=== PATIENT | male | born 1995 | race Caucasian/White ===

== ENCOUNTER 2016-06-28 23:44 | Emergency (ER) | payer BC ==
[~2016-06-28] VITALS: Ht 172.7 cm; Wt 75.7 kg
[2016-06-28 23:48] VITALS: TEMP 37; Ht 172.7 cm; Wt 75.7 kg
[2016-06-29] MEDS ORDERED: SODIUM CHLORIDE 0.9% 1000ML 1,000 ML IV STA (00:39)
[2016-06-29] MEDS ORDERED: SODIUM CHLORIDE 0.9% 1000ML 500 ML IV STA (00:39)
[2016-06-29] MEDS ORDERED: ONDANSETRON INJ 2 MG/ML 2 ML VIAL IV STA (00:39)
--- NOTE | 2016-06-29 00:41 | EMERGENCY ROOM VISIT NOTE ---
History Report prepared by Anh: Simon Garrett Under the Supervision of: Dr. Yunier Steele M.D. First contact with patient: 00:32 Chief Complaint: ABDOMINAL PAIN Stated Complaint: ABDOMINAL PAIN IN MULTIPLE SPOTS-WORSENING Nursing Triage Summary: abdominal pain mid upper after lifting last week. pt has still been lifting and stopped with pain. today pt tried to lift again and the pain came back worse and is in different spots. denies n/v/d. History of Present Illness The patient is a 21 year old male who presents to the Emergency Room with complaints of persistent diffuse abdominal pain that began last week. He states that his pain is mainly focused in the left upper quadrant, and is a 4/10 in severity. The abdominal pain is worsened with standing and movement. He states that last week he tried to perform a "max-out" lift. He did not feel any pain during the lift. The day after the lift he started to experience his pain. The patient did try to lift weights again, but stopped immediately after his abdominal pain worsened. He did vomit this morning, but he attributes it to drinking alcohol and eating bad foods last night. He denies any diarrhea or recent fevers. The patient's mother has IBS, and his PCP believes he may have it too. Source of History: patient Onset: One week [employer] Position: abdomen (Diffuse) Symptom Intensity: 4/10 in severity Timing: other (Persistent) Modifying Factors (Worsening): movement Associated Symptoms: + vomiting, No fevers Review of Systems See HPI for pertinent positives & negatives. A total of 10 systems reviewed and were otherwise negative. Past Medical & Surgical Medical Problems: (1) No Known Active Medical Problems Family History Irritable bowel syndrome Social History Smoking Status: Never Smoker Alcohol Use: occasionally Housing Status: lives with roommate Occupation Status: [employer] student Current/Historical Medications Unable to Obtain Active Prescriptions or Reported Meds Allergies Coded Allergies: No Known Allergies (Unverified , 06/28/16) Physical Exam Vital Signs Date Time Temp Pulse Resp B/P Pulse Ox O2 Delivery O2 Flow Rate FiO2 06/29/16 01:14 89 20 148/72 97 Room Air 06/28/16 23:48 37.0 98 18 165/83 96 Room Air Physical Exam GENERAL: Patient is in no acute distress. HEENT: No acute trauma, normocephalic atraumatic, mucous membranes moist, no nasal congestion, no scleral icterus. NECK: No stridor, no adenopathy, no meningismus, trachea is midline. LUNGS: Clear to auscultation bilaterally, no wheeze, no rhonchi, breath sounds equal. HEART: Tachycardic with regular rhythm. No murmurs appreciated. ABDOMEN: Soft, Tender in the right lower quadrant, bowel sounds positive, no hernias, no peritonitis. EXTREMITIES: No cyanosis or edema, full range of motion of all the joints without pain or difficulty, no signs for acute trauma. NEUROLOGIC: Oriented x 3, no acute motor or sensory deficits, no focal weakness. SKIN: No rash, no jaundice, no diaphoresis. Medical Decision & Procedures ER Provider Diagnostic Interpretation: X ray results and stated below per my interpretation and radiologist interpretation. Other radiology results and stated below per my review and radiologist interpretation: US APPENDIX: Appendix not visualized. No free fluid in the right lower quadrant. Radiologist: aKren Roth M.D. Laboratory Results 06/29/16 01:00 Red Blood Count 4.78, Mean Corpuscular Volume 87.0, Mean Corpuscular Hemoglobin 30.1, Mean Corpuscular Hemoglobin Concent 34.6, Mean Platelet Volume 10.8, Neutrophils (%) (Auto) 64.8, Lymphocytes (%) (Auto) 19.1, Monocytes (%) (Auto) 15.0, Eosinophils (%) (Auto) 0.7, Basophils (%) (Auto) 0.2, Neutrophils # (Auto ) 7.39, Lymphocytes # (Auto) 2.18, Monocytes # (Auto) 1.71, Eosinophils # (Auto ) 0.08, Basophils # (Auto) 0.02 06/29/16 01:00 Test 06/29/16 01:00 White Blood Count 11.40 K/uL (4.8-10.8) Red Blood Count 4.78 M/uL (4.7-6.1) Hemoglobin 14.4 g/dL (14.0-18.0) Hematocrit 41.6 % (42-52) Mean Corpuscular Volume 87.0 fL (80-100) Mean Corpuscular Hemoglobin 30.1 pg (25-34) Mean Corpuscular Hemoglobin Concent 34.6 g/dl (32-36) Platelet Count 246 K/uL (130-400) Mean Platelet Volume 10.8 fL (7.4-10.4) Neutrophils (%) (Auto) 64.8 % Lymphocytes (%) (Auto) 19.1 % Monocytes (%) (Auto) 15.0 % Eosinophils (%) (Auto) 0.7 % Basophils (%) (Auto) 0.2 % Neutrophils # (Auto) 7.39 K/uL (1.4-6.5) Lymphocytes # (Auto) 2.18 K/uL (1.2-3.4) Monocytes # (Auto) 1.71 K/uL (0.11-0.59) Eosinophils # (Auto) 0.08 K/uL (0-0.5) Basophils # (Auto) 0.02 K/uL (0-0.2) RDW Standard Deviation 41.4 fL (36.4-46.3) RDW Coefficient of Variation 12.8 % (11.5-14.5) Immature Granulocyte % (Auto) 0.2 % Immature Granulocyte # (Auto) 0.02 K/uL (0.00-0.02) Urine Color YELLOW Urine Appearance CLOUDY (CLEAR) Urine pH 8.5 (4.5-7.5) Urine Specific [place] 1.027 (1.000-1.030) Urine Protein NEG (NEG) Urine Glucose (UA) NEG (NEG) Urine Ketones NEG (NEG) Urine Occult Blood NEG (NEG) Urine Nitrite NEG (NEG) Urine Bilirubin NEG (NEG) Urine Urobilinogen NEG (NEG) Urine Leukocyte Esterase NEG (NEG) Urine WBC (Auto) 0 /hpf (0-5) Urine RBC (Auto) 0-4 /hpf (0-4) Urine Hyaline Casts (Auto) 0 /lpf (0-5) Urine Epithelial Cells (Auto) 0-5 /lpf (0-5) Urine Bacteria (Auto) NEG (NEG) Anion Gap 9.0 mmol/L (3-11) Est Creatinine Clear Calc Drug Dose 102.7 ml/min Estimated GFR () 110.6 Estimated GFR (Non- 95.5 BUN/Creatinine Ratio 19.5 (10-20) Calcium Level 9.1 mg/dl (8.5-10.1) Total Bilirubin 0.4 mg/dl (0.2-1) Aspartate Amino Transf (AST/SGOT) 28 U/L (15-37) Alanine Aminotransferase (ALT/SGPT) 42 U/L (12-78) Alkaline Phosphatase 123 U/L (45-117) Total Protein 7.9 gm/dl (6.4-8.2) Albumin 4.5 gm/dl (3.4-5.0) Globulin 3.4 gm/dl (2.5-4.0) Albumin/Globulin Ratio 1.3 (0.9-2) Lipase 120 U/L (73-393) Laboratory results reviewed by me. Medications Administered Medications (Trade) Dose Ordered Sig/Carlene Route Start Time Stop Time Status Last Admin Dose Admin Sodium Chloride (Nss 1000ml) 500 ml @ 999 mls/hr Q31M STAT IV 06/29/16 00:39 06/29/16 01:09 DC 06/29/16 01:00 999 MLS/HR Ondansetron HCl 4 mg 4 mg NOW STAT IV 06/29/16 00:39 06/29/16 00:43 DC 06/29/16 01:00 4 MG Sodium Chloride (Nss 1000ml) 1,000 ml @ 200 mls/hr Q5H STAT IV 06/29/16 00:39 06/29/16 05:38 06/29/16 00:59 200 MLS/HR ED Course 0033: The patient was evaluated in room C3. A complete history and physical exam was performed. 0039: Ordered Sodium Chloride 1000 mL @ 200 mL/hr IV, Zofran 4 mg IV, Sodium Chloride 500 mL @ 999 mL/hr IV. Medical Decision Differential Diagnosis include: appendicitis, bowel rupture, hematoma, musculoskeletal pain, urinary tract infection, pancreatitis, hernia. There is a mild leukocytosis consistent with possible infection or just the stress of his presentation. No anemia. No significant electrolyte abnormality , kidney failure, hepatitis or pancreatitis. Urinalysis does not show evidence for infection or significant hematuria. Abdominal ultrasound could not visualize the appendix. Abdominal and pelvis CT is presently pending. The patient presents with intermittent abdominal pain. On exam, he was tender in the right lower quadrant. I was concerned for appendicitis. The patient received IV saline, IV Zofran. He did not require anything for pain. The patient's case is being assumed by Dr. Linton, he is the oncoming ER physician. Please see his notes for the results of the CT and the final disposition and plan. Impression Primary Impression: Right lower quadrant abdominal pain Scribe Attestation The scribe's documentation has been prepared under my direction and personally reviewed by me in its entirety. I confirm that the note above accurately reflects all work, treatment, procedures, and medical decision making performed by me. Departure Information Dispostion Still a Patient Prescriptions Unable to Obtain Active Prescriptions or Reported Meds Referrals No Doctor, Assigned (PCP) Patient Instructions My [facility]
[2016-06-29] MEDS ORDERED: OPTIRAY 320 IV PRN (01:00)
[2016-06-29 01:15] LABS: BASO % 0.2 %; BASO ABS # 0.02 K/uL (0-0.2); COMPLETE YES; EOS % 0.7 %; HEMATOCRIT 41.6 % (42-52); IG% 0.2 %; LYMPH % 19.1 %; LYMPH ABS # 2.18 K/uL (1.2-3.4); MEAN CORPUSCULAR HEMOGLOBIN 30.1 pg (25-34); MEAN CORPUSCULAR HGB CONC 34.6 g/dl (32-36); MEAN PLATELET VOLUME 10.8 fL (7.4-10.4); NEUT % 64.8 %; PLATELET COUNT 246 K/uL (130-400); RED BLOOD COUNT 4.78 M/uL (4.7-6.1)
[2016-06-29 01:29] LABS: URINE APPEARANCE CLOUDY (CLEAR); URINE BILIRUBIN NEG (NEG); URINE COLOR YELLOW; URINE EPITHELIAL CELL AUTO 0-5 /lpf (0-5); URINE NITRITE NEG (NEG); URINE PH 8.5 (4.5-7.5); URINE SPECIFIC GRAVITY 1.027 (1.000-1.030); UROBILINOGEN NEG (NEG); ZZUR CULT IF INDIC CLEAN CATCH NO
[2016-06-29 01:31] LABS: BUN/CREATININE RATIO 19.5 (10-20); CALCIUM 9.1 mg/dl (8.5-10.1); CREATININE 1.1 mg/dl (0.60-1.40); POTASSIUM 3.7 mmol/L (3.5-5.1)
[2016-06-29 01:34] LABS: ALB/GLOB RATIO 1.3 (0.9-2); MANUAL MICROSCOPIC REQUIRED? NO; REVIEW REQ? NO
[2016-06-29 04:16] VITALS: BP 144/64; PULSE 79; O2SAT 98
--- NOTE | 2016-06-29 04:24 | EMERGENCY ROOM VISIT NOTE ---
ED Visit Note First contact with patient: 04:23 Case turned over to me at 4:23 AM, patient's resting in no distress on reexamination. Patient's CAT scan is negative and states normal appendix. On reexamination the patient has mild diffuse tenderness but no rebound rigidity or guarding. I discussed the workup the patient at bedside instructed him to return for worsening symptoms anorexia fever or continued right lower quadrant pain. Current/Historical Medications No Active Prescriptions or Reported Meds Allergies Coded Allergies: No Known Allergies (Unverified , 06/28/16) Vital Signs Date Time Temp Pulse Resp B/P Pulse Ox O2 Delivery O2 Flow Rate FiO2 06/29/16 04:16 79 20 144/64 98 Room Air 06/29/16 01:14 89 20 148/72 97 Room Air 06/28/16 23:48 37.0 98 18 165/83 96 Room Air Laboratory Results 06/29/16 01:00 Red Blood Count 4.78, Mean Corpuscular Volume 87.0, Mean Corpuscular Hemoglobin 30.1, Mean Corpuscular Hemoglobin Concent 34.6, Mean Platelet Volume 10.8, Neutrophils (%) (Auto) 64.8, Lymphocytes (%) (Auto) 19.1, Monocytes (%) (Auto) 15.0, Eosinophils (%) (Auto) 0.7, Basophils (%) (Auto) 0.2, Neutrophils # (Auto ) 7.39, Lymphocytes # (Auto) 2.18, Monocytes # (Auto) 1.71, Eosinophils # (Auto ) 0.08, Basophils # (Auto) 0.02 06/29/16 01:00 Test 06/29/16 01:00 White Blood Count 11.40 K/uL (4.8-10.8) Red Blood Count 4.78 M/uL (4.7-6.1) Hemoglobin 14.4 g/dL (14.0-18.0) Hematocrit 41.6 % (42-52) Mean Corpuscular Volume 87.0 fL (80-100) Mean Corpuscular Hemoglobin 30.1 pg (25-34) Mean Corpuscular Hemoglobin Concent 34.6 g/dl (32-36) Platelet Count 246 K/uL (130-400) Mean Platelet Volume 10.8 fL (7.4-10.4) Neutrophils (%) (Auto) 64.8 % Lymphocytes (%) (Auto) 19.1 % Monocytes (%) (Auto) 15.0 % Eosinophils (%) (Auto) 0.7 % Basophils (%) (Auto) 0.2 % Neutrophils # (Auto) 7.39 K/uL (1.4-6.5) Lymphocytes # (Auto) 2.18 K/uL (1.2-3.4) Monocytes # (Auto) 1.71 K/uL (0.11-0.59) Eosinophils # (Auto) 0.08 K/uL (0-0.5) Basophils # (Auto) 0.02 K/uL (0-0.2) RDW Standard Deviation 41.4 fL (36.4-46.3) RDW Coefficient of Variation 12.8 % (11.5-14.5) Immature Granulocyte % (Auto) 0.2 % Immature Granulocyte # (Auto) 0.02 K/uL (0.00-0.02) Urine Color YELLOW Urine Appearance CLOUDY (CLEAR) Urine pH 8.5 (4.5-7.5) Urine Specific [place] 1.027 (1.000-1.030) Urine Protein NEG (NEG) Urine Glucose (UA) NEG (NEG) Urine Ketones NEG (NEG) Urine Occult Blood NEG (NEG) Urine Nitrite NEG (NEG) Urine Bilirubin NEG (NEG) Urine Urobilinogen NEG (NEG) Urine Leukocyte Esterase NEG (NEG) Urine WBC (Auto) 0 /hpf (0-5) Urine RBC (Auto) 0-4 /hpf (0-4) Urine Hyaline Casts (Auto) 0 /lpf (0-5) Urine Epithelial Cells (Auto) 0-5 /lpf (0-5) Urine Bacteria (Auto) NEG (NEG) Anion Gap 9.0 mmol/L (3-11) Est Creatinine Clear Calc Drug Dose 102.7 ml/min Estimated GFR () 110.6 Estimated GFR (Non- 95.5 BUN/Creatinine Ratio 19.5 (10-20) Calcium Level 9.1 mg/dl (8.5-10.1) Total Bilirubin 0.4 mg/dl (0.2-1) Aspartate Amino Transf (AST/SGOT) 28 U/L (15-37) Alanine Aminotransferase (ALT/SGPT) 42 U/L (12-78) Alkaline Phosphatase 123 U/L (45-117) Total Protein 7.9 gm/dl (6.4-8.2) Albumin 4.5 gm/dl (3.4-5.0) Globulin 3.4 gm/dl (2.5-4.0) Albumin/Globulin Ratio 1.3 (0.9-2) Lipase 120 U/L (73-393) Medications Administered Medications (Trade) Dose Ordered Sig/Carlene Route Start Time Stop Time Status Last Admin Dose Admin Sodium Chloride (Nss 1000ml) 500 ml @ 999 mls/hr Q31M STAT IV 06/29/16 00:39 06/29/16 01:09 DC 06/29/16 01:00 999 MLS/HR Ondansetron HCl 4 mg 4 mg NOW STAT IV 06/29/16 00:39 06/29/16 00:43 DC 06/29/16 01:00 4 MG Sodium Chloride (Nss 1000ml) 1,000 ml @ 200 mls/hr Q5H STAT IV 06/29/16 00:39 06/29/16 05:38 06/29/16 00:59 200 MLS/HR Departure Information Impression Primary Impression: Right lower quadrant abdominal pain Dispostion Still a Patient Prescriptions No Active Prescriptions or Reported Meds Referrals No Doctor, Assigned (PCP) Patient Instructions [facility]
--- NOTE | 2016-06-29 07:39 | DIAGNOSTIC IMAGING REPORT ---
APPENDIX ULTRASOUND HISTORY: Right lower quadrant abdominal pain. COMPARISON: None. FINDINGS: Transabdominal scanning of the right lower quadrant was performed. The appendix was not identified. There are no fluid collections or masses within the right lower quadrant. IMPRESSION: The appendix was not identified. Electronically signed by: Fabien Queen M.D. 06/29/2016 7:37 AM Dictated Date/Time: 06/29/2016 7:37 AM
--- NOTE | 2016-06-29 07:49 | DIAGNOSTIC IMAGING REPORT ---
ABDOMEN AND PELVIS CT WITH IV AND ORAL CONTRAST CT DOSE: 331.93 mGy.cm HISTORY: Right lower quadrant abdominal pain. TECHNIQUE: Multiaxial CT images of the abdomen and pelvis were performed following the use of intravenous and oral contrast. COMPARISON STUDY: None. FINDINGS: The lung bases are clear. The liver, spleen, gallbladder, pancreas, kidneys, and adrenal glands are within normal limits. No bowel wall thickening or obstruction. The pelvic organs are unremarkable. No suspicious lytic or blastic osseous lesions. Normal appendix. IMPRESSION: No significant abnormality identified within the abdomen or pelvis. Normal appendix. Electronically signed by: Fabien Queen M.D. 06/29/2016 7:48 AM Dictated Date/Time: 06/29/2016 7:44 AM
== END 2016-06-29 04:34 | disposition home or self-care (01) ==
LOC: C.EDB 23:45
DX: R10.31 Right lower quadrant pain (principal)

== ENCOUNTER 2016-12-11 23:10 | Emergency (ER) | payer BC ==
[~2016-12-11] VITALS: Ht 172.7 cm; Wt 74.4 kg
[2016-12-11 23:19] VITALS: TEMP 37; Ht 172.7 cm; Wt 74.4 kg
--- NOTE | 2016-12-11 23:35 | EMERGENCY ROOM VISIT NOTE ---
History Report prepared by Anh: Lisa Che Under the Supervision of: Phoebe RamirezO. First contact with patient: 23:23 Chief Complaint: ABDOMINAL PAIN Stated Complaint: PAIN IN LEFT SIDE UNDER RIBS CLOSER TO SIDE History of Present Illness The patient is a 21 year old male who presents to the Emergency Room with complaints of intermittent left-sided flank pain beginning yesterday. He describes the pain as being tight. The patient reports getting migraines over the last couple of weeks, which he states is unusual for him. He states that his migraines begin at night, and that they do not go away until he goes to bed. The patient also states that he has been nauseous and warm to the touch. The patient also reports being congested since the beginning of the school year , but states that he does have allergies. He also reports that he has had blood in his stool three times in the last month, the most recent of which was a week and a half ago. He denies straining with these bowel movements. He also denies blood in his urine, and also denies that he has been bruising easily lately. The patient states that he usually only gets around 6 hours of sleep per night. He states that he has IBS, and that his mother has IBS. He denies a family history of Crohn's disease. Source of History: patient Onset: yesterday Position: other (left-sided flank ) Quality: other (tightness) Timing: intermittent Associated Symptoms: + headache, + nausea Note: additional symptom: congestion, blood in stool Review of Systems See HPI for pertinent positives & negatives. A total of 10 systems reviewed and were otherwise negative. Past Medical & Surgical Medical Problems: (1) No Known Active Medical Problems Family History Irritable bowel syndrome Social History Smoking Status: Never Smoker Alcohol Use: occasionally Housing Status: lives with roommate Occupation Status: [employer] student Current/Historical Medications No Active Prescriptions or Reported Meds Allergies Coded Allergies: No Known Allergies (Unverified , 12/11/16) Physical Exam Vital Signs Date Time Temp Pulse Resp B/P (MAP) Pulse Ox O2 Delivery O2 Flow Rate FiO2 12/12/16 01:11 78 18 116/73 99 12/11/16 23:19 37.0 92 18 143/80 97 Room Air Physical Exam GENERAL: alert, well appearing, well nourished, no distress, non-toxic EYE EXAM: normal conjunctiva, PERRL and EOM's grossly intact OROPHARYNX: no exudate, no erythema, lips, buccal mucosa, and tongue normal and mucous membranes are moist. No sinus or mastoid tenderness to percussion. NECK: supple, no nuchal rigidity, no adenopathy, non-tender LUNGS: Clear to auscultation. Normal chest wall mechanics HEART: no murmurs, S1 normal and S2 normal, no w/r/r, no reproducible chest wall tenderness ABDOMEN: abdomen soft, non-tender, normo-active bowel sounds, no masses, no rebound or guarding. No tenderness to palpation to ribs. BACK: Back is symmetrical on inspection and there is no deformity, no midline tenderness, no CVA tenderness. SKIN: no rashes and no bruising UPPER EXTREMITIES: upper extremities are grossly normal. Nml ROM, nml pulses. LOWER EXTREMITIES: No pitting edema. Nml ROM, nml pulses. NEURO EXAM: Normal sensorium, cranial nerves II-XII [grossly] intact, normal speech, no [gross] weakness of arms, no [gross] weakness of legs. Gross sensation intact. Medical Decision & Procedures ER Provider Diagnostic Interpretation: Chest X-ray 1 view: No cardiomegaly, no focal infiltrate, no effusion, no widening mediastinum. Abdomen 2 view: No scattered stool, no SBO, no free air. Radiology results have been interpreted by [facility]. CT HEAD: No acute intracranial process. Large adenoids. Laboratory Results 12/11/16 23:45 Red Blood Count 5.12, Mean Corpuscular Volume 84.4, Mean Corpuscular Hemoglobin 29.7, Mean Corpuscular Hemoglobin Concent 35.2, Mean Platelet Volume 10.5, Neutrophils (%) (Auto) 63.5, Lymphocytes (%) (Auto) 22.3, Monocytes (%) (Auto) 12.4, Eosinophils (%) (Auto) 1.3, Basophils (%) (Auto) 0.2, Neutrophils # (Auto ) 8.38, Lymphocytes # (Auto) 2.94, Monocytes # (Auto) 1.64, Eosinophils # (Auto ) 0.17, Basophils # (Auto) 0.03 12/11/16 23:45 Test 12/11/16 23:45 White Blood Count 13.20 K/uL (4.8-10.8) Red Blood Count 5.12 M/uL (4.7-6.1) Hemoglobin 15.2 g/dL (14.0-18.0) Hematocrit 43.2 % (42-52) Mean Corpuscular Volume 84.4 fL (80-100) Mean Corpuscular Hemoglobin 29.7 pg (25-34) Mean Corpuscular Hemoglobin Concent 35.2 g/dl (32-36) Platelet Count 259 K/uL (130-400) Mean Platelet Volume 10.5 fL (7.4-10.4) Neutrophils (%) (Auto) 63.5 % Lymphocytes (%) (Auto) 22.3 % Monocytes (%) (Auto) 12.4 % Eosinophils (%) (Auto) 1.3 % Basophils (%) (Auto) 0.2 % Neutrophils # (Auto) 8.38 K/uL (1.4-6.5) Lymphocytes # (Auto) 2.94 K/uL (1.2-3.4) Monocytes # (Auto) 1.64 K/uL (0.11-0.59) Eosinophils # (Auto) 0.17 K/uL (0-0.5) Basophils # (Auto) 0.03 K/uL (0-0.2) RDW Standard Deviation 41.1 fL (36.4-46.3) RDW Coefficient of Variation 13.2 % (11.5-14.5) Immature Granulocyte % (Auto) 0.3 % Immature Granulocyte # (Auto) 0.04 K/uL (0.00-0.02) Prothrombin Time 10.7 SECONDS (9.0-12.0) Prothromb Time International Ratio 1.0 (0.9-1.1) Anion Gap 9.0 mmol/L (3-11) Est Creatinine Clear Calc Drug Dose 120.2 ml/min Estimated GFR () 133.8 Estimated GFR (Non- 115.4 BUN/Creatinine Ratio 19.1 (10-20) Calcium Level 9.2 mg/dl (8.5-10.1) Total Bilirubin 0.5 mg/dl (0.2-1) Aspartate Amino Transf (AST/SGOT) 30 U/L (15-37) Alanine Aminotransferase (ALT/SGPT) 42 U/L (12-78) Alkaline Phosphatase 125 U/L (45-117) Total Protein 8.3 gm/dl (6.4-8.2) Albumin 4.4 gm/dl (3.4-5.0) Globulin 3.9 gm/dl (2.5-4.0) Albumin/Globulin Ratio 1.1 (0.9-2) Lipase 112 U/L (73-393) Laboratory results per my review. ED Course 2327: The patient was evaluated in room B11B. A complete history and physical exam was performed. 0100: I updated the patient on his results. 0110: Upon reevaluation, the patient is feeling better. I discussed the findings and the treatment plan with the patient. He verbalizes agreement and understanding. He was discharged home. Medical Decision Differential diagnosis: Etiologies such as appendicitis, diverticulitis, PUD, biliary pathology, UTI, pancreatitis, obstruction, mesenteric ischemia, aortic pathology, infections, inflammatory bowel disease, renal colic, as well as others were entertained. Patient well-appearing here, no pain during my exam and nothing reproducible. Labs and imaging reassuring. Patient with multiple complaints, although none active at this time. I suspect intermittent headaches and URI symptoms possibly due to sleep deprivation and stress, possible component of seasonal allergies. Patient states 3 episodes of right red blood with bowel movements a couple weeks ago, however none more recently. Given lack of abdominal pain or diarrhea recently, have a lower suspicion for an occult colitis, presentation of Crohn's disease are also of colitis. Discussed with patient symptoms watch return for, adequate rest and hydration, follow-up with family doctor as a precaution, he verbalized understanding was agreeable with plan. Doubt headache related to subarachnoid hemorrhage, meningitis, CVA, dissection, central venous sinus thrombus. Not classic in presentation for migraines or tension headache. Medication Reconcilliation Current Medication List: was personally reviewed by me Blood Pressure Screening Patient's blood pressure: Elevated blood pressure Blood pressure disposition: Elevated BP felt to be situational Impression Primary Impression: Left upper quadrant pain Additional Impression: Headache Scribe Attestation The scribe's documentation has been prepared under my direction and personally reviewed by me in its entirety. I confirm that the note above accurately reflects all work, treatment, procedures, and medical decision making performed by me. Departure Information Dispostion Home / Self-Care Prescriptions No Active Prescriptions or Reported Meds Referrals No Doctor, Assigned (PCP) Forms HOME CARE DOCUMENTATION FORM, IMPORTANT VISIT INFORMATION Patient Instructions [facility] Additional Instructions Please continue to monitor symptoms for any changes. You may eat and drink normally. If you have any recurrent or worsening headaches, develop vision changes, vomiting, dizziness, have recurrent abdominal pain, notice recurrent blood in your stool, notice diarrhea, develop fevers with vomiting or blood in the stool with abdominal pain, or you have any other new concerns, please return the emergency room. Problem Qualifiers Additional Impression: Headache Headache type: unspecified Headache chronicity pattern: episodic headache Intractability: not intractable Qualified Codes: R51 - Headache
[2016-12-11 23:59] LABS: BASO % 0.2 %; BASO ABS # 0.03 K/uL (0-0.2); COMPLETE YES; EOS % 1.3 %; HEMATOCRIT 43.2 % (42-52); IG% 0.3 %; LYMPH % 22.3 %; LYMPH ABS # 2.94 K/uL (1.2-3.4); MEAN CELL VOLUME 84.4 fL (80-100); MEAN CORPUSCULAR HEMOGLOBIN 29.7 pg (25-34); MEAN CORPUSCULAR HGB CONC 35.2 g/dl (32-36); MEAN PLATELET VOLUME 10.5 fL (7.4-10.4); MONO % 12.4 %; NEUT % 63.5 %; PLATELET COUNT 259 K/uL (130-400); RED BLOOD COUNT 5.12 M/uL (4.7-6.1)
[2016-12-12 00:07] LABS: PROTHROMBIN TIME (PATIENT) 10.7 SECONDS (9.0-12.0)
[2016-12-12 00:16] LABS: BUN/CREATININE RATIO 19.1 (10-20); CALCIUM 9.2 mg/dl (8.5-10.1); CREATININE 0.94 mg/dl (0.60-1.40); POTASSIUM 3.6 mmol/L (3.5-5.1)
[2016-12-12 00:19] LABS: ALB/GLOB RATIO 1.1 (0.9-2)
[2016-12-12 01:11] VITALS: BP 116/73; PULSE 78; O2SAT 99
--- NOTE | 2016-12-12 07:12 | DIAGNOSTIC IMAGING REPORT ---
HEAD CT NONCONTRAST CT DOSE: 537.48 mGy.cm HISTORY: atypical headaches TECHNIQUE: Multiaxial CT images of the head were performed without the use of intravenous contrast. Automated exposure control was utilized for this study. A dose lowering technique was utilized adhering to the principles of ALARA. Comparison: None. Findings: The paranasal sinuses and mastoid air cells are clear. The calvarium and skull base are intact. The ventricles and sulci are within normal limits. There is no mass, hematoma, midline shift, or acute infarct. Impression: No acute intracranial abnormality. Electronically signed by: Faiben Queen M.D. 12/12/2016 7:10 AM Dictated Date/Time: 12/12/2016 7:07 AM
--- NOTE | 2016-12-12 07:25 | DIAGNOSTIC IMAGING REPORT ---
CHEST AND ABDOMEN 2 VIEWS HISTORY: Left upper quadrant abdominal pain. COMPARISON: Abdomen and pelvis CT 06/29/2016. FINDINGS: The lungs are clear. The cardiomediastinal silhouette is within normal limits. There is no pneumoperitoneum or pneumatosis. The bowel gas pattern is unremarkable. No evidence for bowel obstruction. No pathologic calcifications. Moderate well-formed stool seen within the colon. IMPRESSION: No acute cardiopulmonary process. No evidence for bowel obstruction. Moderate well-formed stool seen within the colon. Electronically signed by: Fabien Queen M.D. 12/12/2016 7:23 AM Dictated Date/Time: 12/12/2016 7:21 AM
== END 2016-12-12 01:12 | disposition home or self-care (01) ==
LOC: C.EDB 23:13
DX: R10.12 Left upper quadrant pain (principal); R51 Headache